=== PATIENT | female | born 1975 | race Two or more races ===

== ENCOUNTER 2024-06-22 16:31 | Emergency (ER) | payer OTHER ==
[~2024-06-22] VITALS: Ht 162.6 cm; Wt 119.3 kg
[~2024-06-22 16:31] MED LIST: ALTACE5 MG; TOPROL XL50 MG
[2024-06-22] MEDS ORDERED: AVAPRO150 MG (16:46)
[2024-06-22] MEDS ORDERED: 0.9 % SODIUM CHLORIDE 1,000 ML IV STA (16:57)
[2024-06-22] MEDS ORDERED: BARIUM SULFATE 450 ML ORAL.SUSP PO ONE (17:03)
[2024-06-22 17:21] LABS: HEMATOCRIT 38.4 % (36.0-45.00); HEMOGLOBIN 12.6 g/dL (12.0-15.00); MEAN CELL VOLUME 89.3 fL (80.00-100.00); MEAN CORPUSCULAR HEMOGLOBIN 29.3 pg (27.00-32.0); MEAN CORPUSCULAR HGB CONC 32.8 g/dl (32.0-36.0); PLATELET COUNT 302 K/uL (150-450); RED CELL DISTRIBUTION WIDTH 15.3 % (11.5-14.5)
[2024-06-22 17:27] LABS: PH,URINE 6.5 (5.0-8.0); URINE APPEARANCE Clear; URINE BILIRRUBIN Negative (NEGATIVE); URINE BLOOD Large; URINE COLOR Yellow; URINE GLUCOSE Negative (NEGATIVE); URINE KETONE Negative (NEGATIVE); URINE LEUKOCYTE Negative; URINE NITRATE Negative; URINE PROTEIN Negative (NEGATIVE); URINE UROBILINOGEN 0.2 E.U./dl
[2024-06-22 17:28] LABS: URINE BACTERIA 409.4 uL (0.0-1933); URINE EPITHELIAL CELLS 79.4 uL (0.0-38.8); URINE RBC 494.6 uL (0.0-20.8); URINE WBC 2.1 uL (0.0-23.2)
[2024-06-22 17:44] LABS: CALCIUM 9.2 mg/dL (8.5-10.1); CREATININE SERUM 0.94 mg/dL (0.55-1.02); GFR 63.83; POTASSIUM 4.11 mEq/L (3.5-5.1)
[2024-06-22 18:01] LABS: URINE CAST 0.15 uL (0.0-1.40); URINE CRYSTALS FEW /HPF; URINE MUCUS SCANT
[2024-06-23] MEDS ORDERED: KETO10TA2 PO (01:04)
== END 2024-06-23 01:12 ==
LOC: ER 16:33
PROVIDERS: Emergency Medicine
DX: R10.2 Pelvic and perineal pain (principal); K57.30 Diverticulosis of large intestine without perforation or abscess without bleeding; Z88.8 Allergy status to other drugs, medicaments and biological substances; I10 Essential (primary) hypertension